=== PATIENT | female | born 1950 | race Caucasian/White ===

== ENCOUNTER 2022-09-18 07:44 | Outpatient (RCR) | payer MEDICARE, SELFPAY ==
[2022-09-18 10:00] VITALS: PULSE 54; RESP 20; TEMP 35.8; O2SAT 95
[2022-09-18] MEDS: DENOSUMAB 60 MG/ML SYRINGE SUBQ (10:26)
--- NOTE | 2022-09-18 10:32 | PC.NURSE ---
PATIENT ARRIVES AMBULATORY TO INFUSION SERVICES AND IS MADE COMFORTABLE IN THE RECLINER. LABS WERE DONE ON 09/02/21. CALCIUM IS 9.1 AND CREATININE IS 1.09. SQ INJECTION IS GIVEN IN THE RIGHT UPPER ARM AND THE SITE IS COVERED WITH A COTTON BALL AND BAND AID. THE PATIENT TOLERATED THE PROCEDURE WELL AND DOES NOT WANT TO WAIT 20 MINUTES FOR ASSESSMENT OF SIGNS AND SYMPTOMS. SHE HAS HAD THIS INJECTION IN THE PAST AND HAS NOT HAD ANY COMPLICATIONS FROM IT. PATIENT IS DISCHARGED AMBULATORY TO HOME WITH NO COMPLAINTS.
== END 2022-10-03 23:59 | disposition home or self-care (01) ==
LOC: INF 07:44
PROVIDERS: PCP Family Medicine; Visit Provider Family Medicine
DX: M81.0 Age-related osteoporosis without current pathological fracture (principal)
CPT/HCPCS: 96372; J0897